=== PATIENT | female | born 1990 | race African-American/Black ===

== ENCOUNTER 2016-07-15 08:48 | Day surgery (SDC) | payer SELFPAY ==
[2016-07-13 12:08] VITALS: BMI 19.3
[2016-07-15] MEDS ORDERED: ACETAMINOPHEN INJECTION 100 ML IVPB ONE (11:13)
[2016-07-15] MEDS ORDERED: MIDAZOLAM HCL 2 MG/2 ML SINGLE DOSE VIAL ONE (11:13)
[2016-07-15] MEDS ORDERED: GENTAMICIN SO4 80 MG/2 ML VIAL ONE (11:23)
[2016-07-15] MEDS ORDERED: ceFAZolin SODIUM 1 GM VIAL ONE (11:23)
[2016-07-15] MEDS ORDERED: SCOPOLAMINE HYDROBROMIDE 1 PATCH PATCH.TD72 ONE (11:25)
[2016-07-15] MEDS ORDERED: BACITRACIN 30 GM TUBE TOPICAL OINTMENT ONE (13:50)
[2016-07-15] MEDS ORDERED: KETOROLAC TROMETHAMINE 30 MG/1 ML VIAL ONE (13:52)
[2016-07-15] MEDS ORDERED: GLYCOPYRROLATE 0.2 MG/1 ML VIAL ONE (13:52)
[2016-07-15] MEDS ORDERED: DEXAMETHASONE SOD PHOSPHATE 4 MG/1 ML VIAL ONE (13:52)
[2016-07-15] MEDS ORDERED: ONDANSETRON 4 MG/2 ML VIAL ONE ×2 (13:52→14:55)
[2016-07-15] MEDS ORDERED: NEOSTIGMINE METHYLSULFATE 0.5 MG/ML - 10 ML MDV ONE (13:52)
[2016-07-15] MEDS ORDERED: ONDANSETRON 4 MG/2 ML VIAL IVPB PRN (14:43)
[2016-07-15] MEDS ORDERED: oxyCODONE HCL 5 MG TABLET PO PRN ×3 (14:43→14:44)
[2016-07-15] MEDS ORDERED: ONDANSETRON 4 MG/2 ML VIAL IVPUSH PRN (14:44)
[2016-07-15] MEDS ORDERED: PROMETHAZINE HCL 25 MG/1 ML VIAL IVPUSH PRN (14:44)
[2016-07-15] MEDS ORDERED: LACTATED RINGERS SOLUTION 1,000 ML IV SCH ×2 (14:45)
[2016-07-15 16:32] VITALS: TEMP 98.6
[2016-07-15] MEDS ORDERED: oxyCODONE HCL 5 MG TABLET ONE (16:57)
[2016-07-15 18:04] VITALS: BP 124/75; PULSE 88
--- NOTE | 2016-07-16 10:07 | OP ---
OPERATIVE REPORT DATE OF OPERATION: 07/15/2016 PROCEDURE: Bilateral augmentation mammoplasty. PREOPERATIVE DIAGNOSIS: Bilateral micromastia. POSTOPERATIVE DIAGNOSIS: Bilateral micromastia. ATTENDING SURGEON: Cliff Mullen MD MACHINE BINDING FOLDER: There were no assistants. INDICATION: Patient is seen in the holding area, marked. It is explained to the patient the risks, benefits and alternatives to placing implants through the areola. She understands and agrees to proceed. She is marked of the planned incisions, is aware of the resulting scars. PROCEDURE: She was brought to the operating room. She was given 1 g of Ancef preoperatively. Sequential compression stockings and NICOLETTE hose were applied. Position was carefully checked by surgical and anesthesia teams. The patient was prepped and draped standardly. A timeout was called. Patient procedure sites were verified. The procedure was performed as followed. The left breast was addressed first. An infraareolar/periareolar incision was made just inside the pigmented border of the areola. This was beveled away from the nipple areolar complex, and dissection was then carried out to the level of the chest wall. The pectoralis major muscle was identified using Allis clamp. The pectoralis major muscle was lifted from the chest wall. A subpectoral pocket was created to release the inferomedial fibers of the pectoralis major muscle to accommodate the implant. The pocket was copiously irrigated with triple antibiotic solution, and the triple antibiotic solution was a liter of normal saline, 2 g of Ancef, 50,000 units of bacitracin and 80 mg of gentamicin. The hemostasis was assured and then using new gloves and a one-touch technique, the implant was introduced into the pocket using a Mccormack funnel. The implant was seated properly, and the skin was tailor tacked. A mirror-image procedure was then performed on the contralateral right side. The patient was brought to a seated upright position where symmetry of size, shape and position was assured. At this point, the incisions were then closed with a series of interrupted buried deep dermal 3-0 Monocryl suture followed by a running subcuticular 4-0 Monocryl suture. Several 6-0 nylon sutures were used to perfect the closure. All tissues were pink and viable with good bright red bleeding at the dermal edges prior to closure. The patient was dressed with bacitracin and Xeroform over the incisions, ABD gauze and a breast binder. The implants used in this case were a Sientra, style [id number] HP implant. The patient was transferred to recovery without complication. CLIFF MULLEN M.D. [id number]
== END 2016-07-15 18:17 | disposition home or self-care (01) ==
LOC: FASU 08:48
PROVIDERS: ATTEND Plastic Surgery
PROC: 0H0V0JZ Alteration of Bilateral Breast with Synthetic Substitute, Open Approach (ICD-10-PCS; principal; 2016-07-15 12:17)
DX: N64.82 Hypoplasia of breast (principal)
CPT/HCPCS: 84703; 94760